=== PATIENT | female | born 1955 | race Caucasian/White ===

== ENCOUNTER → 2016-12-01 | Outpatient (CLI) | payer BC | LOC: MW.MRI 18:40 | PROVIDERS: ATTEND Orthopaedic Surgery | DX: M17.11 Unilateral primary osteoarthritis, right knee (principal) | CPT/HCPCS: 73721-RT ==

== ENCOUNTER 2016-12-26 08:00 | Inpatient (IN) | payer BC ==
[~2016-12-26 08:00] MED LIST: Acetaminophen 500 MG Tab PO SCH; Famotidine 20 MG/2 ML SDV IVPUSH SCH; Ketorolac 30 MG/ML SDV IVPUSH SCH; Ropivacaine 49.25 ML, Ketorolac 30 MG, EPINEPHrine 0.5 MG, cloNIDine 80 MCG in Sodium C... INFILT ONE; Scopolamine 1.5 MG Transdermal Patch TRDERM SCH; ceFAZolin 2 GM in Premix Bag 1 BAG IV SCH; oxyCODONE ER 20 MG TAB.ER PO SCH
[2016-12-26] MEDS: Lactated Ringers 1,000 ML IV SCH ×2 (08:56→23:48)
[2016-12-26] MEDS ORDERED: Furosemide 20 MG Tab PO PRN (09:00)
[2016-12-26] MEDS ORDERED: Midazolam 1 MG/ML 2 ML SDV ONE (09:05)
[2016-12-26] MEDS ORDERED: Lidocaine 2% 5 ML SDV ONE (09:05)
[2016-12-26] MEDS ORDERED: Propofol 200 MG/20 ML SDV ONE ×2 (09:05→09:24)
[2016-12-26] MEDS ORDERED: fentaNYL 100 MCG/2 ML SDV ONE ×2 (09:05→11:27)
[2016-12-26] MEDS ORDERED: ePHEDrine 50 MG/ML SDV ONE ×2 (09:06→11:23)
[2016-12-26] MEDS ORDERED: Ondansetron 4 MG/2 ML SDV ONE (09:06)
--- NOTE | 2016-12-26 09:43 | PCM.PREANE ---
Preanesthetic Assessment - Anesthesia/Transfusion/Family Hx Anesthesia History: Prior Anesthesia Without Reaction (LEFT CARPAL TUNNEL RELEASE 6 weeks ago) Other Type of Anesthesia Reaction Comment: Never in past but now "I do experience motion sickness on escalator" Family History of Anesthesia Reaction: No Transfusion History: No Prior Transfusion(s) Intubation History: Unknown (s/p cervical fusion) Additional History: CPAP for sleep apnea daily - Review of Systems General: Other (pain from both legs) Pulmonary: Other (sleep apnea; prior smoker) Gastrointestinal: Other (GERD and hiatal hernia (pantaprozole daily).) Neurological: Weakness (left arm with attempt to reach behind her) Other: Reports: Anxiety - Physical Assessment O2 Sat by Pulse Oximetry: 98 Respiratory Rate: 18 Vital Signs: Last Vital Signs Temp 97.8 F 12/26/16 08:54 Pulse 66 12/26/16 08:54 Resp 18 12/26/16 08:54 BP 143/94 H 12/26/16 08:54 Pulse Ox 98 12/26/16 08:54 Height: 5 ft 6 in Weight: 240 lb ASA Class: 3 Mental Status: Alert & Oriented x3 Airway Class: Mallampati = 2 Dentition: Reports: Dentures (upper), Partial (lower), Bridge Thyro-Mental Finger Breadths: 3 Mouth Opening Finger Breadths: 3 ROM/Head Extension: Limited/Partial (limited extension) Lungs: Clear to auscultation, Normal respiratory effort Cardiovascular: Regular Rate, Regular Rhythm - Allergies Allergies/Adverse Reactions: Allergies Allergy/AdvReac Type Severity Reaction Status Date / Time No Known Allergies Allergy Verified 07/04/16 13:19 - Blood Blood Available: Yes Product(s) Available: PRBC - Acknowledgements Anesthesia Type Planned: General Anesthesia (OET due to GERD hx), Spinal Pt an Appropriate Candidate for the Planned Anesthesia: Yes Alternatives and Risks of Anesthesia Discussed w Pt/Guardian: Yes Pt/Guardian Understands and Agrees with Anesthesia Plan: Yes PreAnesthesia Questionnaire HEENT History: Reports: Other (see below) Other HEENT History: wears glasses Cardiovascular History: Reports: High cholesterol, Hypertension Respiratory History: Reports: Sleep apnea, Other (see below) Other Respiratory History: Former smoker, QUIT 10 yrs ago, hx: 37 yrs of smoking heavily at one time up to 3 packs/day. Sleep apnea with machine, will bring day of procedure (portable) Gastrointestinal History: Reports: GERD, Hiatal hernia Other Gastrointestinal History: Heartburn/GERD Genitourinary History: Reports: None Musculoskeletal History: Reports: Arthritis, Fibromyalgia, Other (see below) Neurological History: Reports: None Psychiatric History: Reports: Depression Endocrine/Metabolic History: Reports: Obesity/BMI 30+ Hematologic History: Reports: None - Past Surgical History Head Surgeries/Procedures: Reports: None GI Surgical History: Reports: Appendectomy, Cholecystectomy Female Surgical History: Reports: Hysterectomy, Salpingo-oophorectomy Neurological Surgical History: Reports: Spinal fusion Other Neurological Surgeries/Procedures: Neck fusion 5--7 Musculoskeletal Surgical History: Reports: Arthroscopic knee, Shoulder surgery Other Musculoskeletal Surgeries/Procedures:: Left knee scope for torn meniscus, Neck surgery with FUSION --7, Right Achilles surgery, Left Shoulder surgery for spur removal, karlene carpal tunnel release - SUBSTANCE USE Smoking Status *Q: Former Smoker Tobacco Use Within Last Twelve Months: Cigarettes Other Tobacco Use Within Last Twelve Months: quit smoking 10 yrs ago Second Hand Smoke Exposure: No Recreational Drug Use History: No - HOME MEDS Home Medications: Home Meds Aspirin [Ecotrin] 1 tab PO DAILY 07/04/16 [History] Atenolol 1 tab PO BEDTIME 07/04/16 [History] Escitalopram Oxalate 1 tab PO BEDTIME 07/04/16 [History] Furosemide 1 tab PO DAILY PRN 07/04/16 [History] Lisinopril 1 tab PO BEDTIME 07/04/16 [History] Pantoprazole Sodium 1 tab PO BEDTIME 07/04/16 [History] Rosuvastatin [Crestor] 1 tab PO BEDTIME 07/04/16 [History] rOPINIRole HCl [Requip] 2 mg PO BEDTIME 11/04/16 [History] Acetaminophen/HYDROcodone [Hastings 325-5 MG] 1 - 2 tab PO Q4H PRN #80 tablet 11/09 [Rx] - CURRENT (IN HOUSE) MEDS Current Meds: Current Medications Acetaminophen (Tylenol Extra Strength) 1,000 mg PO ONARRIVE SHERIE Last Admin: 12/26/16 08:57 Dose: 1,000 mg Famotidine (Pepcid) 40 mg IVPUSH ONARRIVE SHERIE Last Admin: 12/26/16 08:56 Dose: 40 mg Lactated Ringer's (Ringers, Lactated) 1,000 mls @ 100 mls/hr IV ASDIRECTED [facility] Last Admin: 12/26/16 08:56 Dose: 100 mls/hr Cefazolin Sodium/Dextrose 2 gm (/ Premix) 50 mls @ 100 mls/hr IV ONCALL SHERIE Ketorolac Tromethamine (Toradol) 30 mg IVPUSH ONARRIVE [facility] Last Admin: 12/26/16 08:57 Dose: 30 mg Oxycodone HCl (Oxycontin) 20 mg PO ONARRIVE [facility] Last Admin: 12/26/16 08:58 Dose: 20 mg Scopolamine (Transderm-Scop) 1.5 mg TRDERM ONARRIVE [facility] Last Admin: 12/26/16 08:58 Dose: 1.5 mg Tranexamic Acid (Cyklokapron) 4,000 mg IV SEECOMMENT [facility] Discontinued Medications Ephedrine Sulfate (Ephedrine Sulfate) Confirm Administered Dose 50 mg .ROUTE .STK-MED ONE Stop: 12/26/16 09:07 Fentanyl (Sublimaze) Confirm Administered Dose 100 mcg .ROUTE .STK-MED ONE Stop: 12/26/16 09:06 Ropivacaine 49.25 ml/Ketorolac Tromethamine 30 mg/Epinephrine HCl 0.5 mg/ Clonidine HCl 80 mcg/ Sodium Chloride 100 mls @ 50 mls/min INFILT ONETIME ONE Stop: 12/26/16 06:01 Lidocaine (Xylocaine-Mpf 2%) Confirm Administered Dose 10 ml .ROUTE .STK-MED ONE Stop: 12/26/16 09:06 Midazolam HCl (Versed 1 Mg/Ml) Confirm Administered Dose 2 mg .ROUTE .STK-MED ONE Stop: 12/26/16 09:06 Ondansetron HCl (Zofran) Confirm Administered Dose 4 mg .ROUTE .STK-MED ONE Stop: 12/26/16 09:07 Propofol (Diprivan 20 Ml) Confirm Administered Dose 400 mg .ROUTE .STK-MED ONE Stop: 12/26/16 09:06 Propofol (Diprivan 20 Ml) Confirm Administered Dose 200 mg .ROUTE .STK-MED ONE Stop: 12/26/16 09:25 Preanesthetic Assessment - ANESTHESIA/TRANSFUSION/FAMILY HX Anesthesia/Transfusion History: Prior Anesthesia (cervical neck fusion 1 yr ago , no complications with any of her anesthetics in the past. ) Other Type of Anesthesia Reaction Comment: Never in past but now "I do experience motion sickness on escalator" Family History of Anesthesia Reaction: No Intubation History: Unknown - PHYSICAL ASSESSMENT O2 Sat by Pulse Oximetry: 98 RR: 18 Vital Signs: Last Vital Signs Temp 97.8 F 12/26/16 08:54 Pulse 66 12/26/16 08:54 Resp 18 12/26/16 08:54 BP 143/94 H 12/26/16 08:54 Pulse Ox 98 12/26/16 08:54 Height: 5 ft 6 in Weight: 240 lb - ALLERGIES Allergies/Adverse Reactions: Allergies Allergy/AdvReac Type Severity Reaction Status Date / Time No Known Allergies Allergy Verified 07/04/16 13:19
[2016-12-26] MEDS ORDERED: fentaNYL 100 MCG/2 ML SDV IVPUSH PRN (11:43)
[2016-12-26] MEDS ORDERED: HYDROmorphone 2 MG/ML Syringe IVPUSH ONE (11:43)
[2016-12-26] MEDS ORDERED: Ondansetron 4 MG/2 ML SDV IV PRN (12:14)
[2016-12-26] MEDS ORDERED: Aluminum Hydroxide/Magnesium Hydroxide/Simethicone Susp 30 ML Cup PO PRN (12:16)
[2016-12-26] MEDS ORDERED: Morphine 10 MG/ML Syringe IVPUSH PRN (12:16)
[2016-12-26] MEDS ORDERED: oxyCODONE 5 MG Tab PO PRN (12:16)
[2016-12-26] MEDS ORDERED: Bisacodyl 10 MG Supp RECTAL PRN (12:16)
--- NOTE | 2016-12-26 12:29 | PCM.OPNOTE ---
- General Post-Op/Procedure Note Date of Surgery/Procedure: 12/26/16 Operative Procedure(s): R TKA Post-Op Diagnosis: DJD R Knee Anesthesia Technique: General ET tube, Spinal Primary Surgeon: Renee Kelley Entry Writer: Ivy Alex Entry Writer: Omaira Hurley in mLs: 50 Condition: Good Free Text/Narrative:: tt=42 min #[id number]
--- NOTE | 2016-12-26 13:09 | OR ---
SURGEON: Renee Kelley MD DATE OF PROCEDURE: 12/26/2016 PREOPERATIVE DIAGNOSIS: Osteoarthritis, right knee, tricompartmental. POSTOPERATIVE DIAGNOSIS: Osteoarthritis, right knee, tricompartmental. PROCEDURE: Right total knee arthroplasty using patient specific instrumentation. ASSISTANTS: 1. Ivy Alex PA-C. 2. Omaira Hurley PA-C. ANESTHESIA: Spinal and general. ESTIMATED BLOOD LOSS: 50 mL. TOURNIQUET TIME: 42 minutes. COMPLICATIONS: None. DVT PROPHYLAXIS: PAS boot and ZEINAB hose to the nonoperative leg. IMPLANTS USED: Mica Persona femoral component size 8 (LPS), tibial component size F, 10 mm all-polyethylene articular surface, and 35 mm all-polyethylene patella. FINDINGS: Showed grade 4 chondromalacia throughout all 3 compartments. No significant synovitis was noted. Osteophyte formation was also noted. 1 g of tranexamic acid was given IV at the start of the case. An additional gram was given IV following deflation of the tourniquet. 1 g was administered topically as the cement was allowed to harden. BRIEF HISTORY: Elena is a 61-year-old female, who has had complaint of progressive right knee pain. She had previously undergone a right knee arthroscopy, which did show evidence of grade 3 to grade 4 chondromalacia. Due to her lack of response to conservative treatment, I did recommend surgical intervention. The risks and goals of the procedure were discussed with the patient and were documented preoperatively. She agreed to proceed. DESCRIPTION OF PROCEDURE: The patient was properly identified and brought to the operating room. The patient was then transferred from the operating room cart and placed on the operating table in a supine position. Anesthesia was administered by the anesthesia staff. After adequate anesthesia was obtained, a well-padded tourniquet was applied to the surgical lower extremity. The lower extremity was then prepped in standard fashion using ChloraPrep solution. It was then sterilely draped. A time-out was performed to ensure correct site and procedure. Preoperative antibiotics were given. The surgical site had been marked preoperatively. An Esmarch was used to exsanguinate the right lower extremity and the tourniquet was inflated. An incision was made over the anterior aspect of the knee. The subcutaneous tissues were dissected down to the level of the fascia. A medial parapatellar approach to the knee was made. A portion of the infrapatellar fat pad was then excised. The distal femur was then exposed. The femoral patient-specific cutting guide was then placed. Pins were also placed. The distal femoral cutting block was placed and the distal femoral cut was made. Instrumentation was then removed. Both Whitesides' line and the epicondylar axis were then marked with electrocautery. The 4-in-1 cutting block was placed. This was placed in a slightly externally rotated position, which corresponded well with the previously drawn lines. The cutting guide was then pinned into position. An Jim wing guide was used to check the depth of resection of our anterior condylar cut and it was felt that no notching would occur. The anterior condylar cut was then made followed by the posterior condylar cut. Both the posterior chamfer and anterior chamfer cuts were then made. The cutting block was then removed along with the excess bony remnants. We then turned our attention to the tibia. The anterior cruciate ligament and posterior cruciate ligament were released and a posterior cruciate ligament retractor was placed to allow the tibia to be pulled anteriorly. The tibial patient-specific guide was then placed on the proximal tibia. This fit anatomically. The pins were then placed. The proximal tibia cutting guide was then placed and screwed into position. The proximal tibial resection was then made with care being taken to protect the patellar tendon. The bony resection was then removed. The remainder of the medial and lateral meniscus were then excised. Care was taken to protect the popliteus tendon. The tibia was then sized to the appropriate size. The distal femur was then elevated. The posterior capsule was stripped off the distal femur both medially and laterally. The posterior capsule along with the medial and lateral gutters were then injected with a standard mixture consisting of clonidine, epinephrine, Morphine, Toradol, and Ropivacaine, unless any allergies were found preoperatively. The femoral component was then placed onto the distal femur in a slightly lateral position. This fit the femur well. A box cut was then made without difficulty. This was then removed. The tibial trial along with the polyethylene liner was then placed. The knee came easily into full extension and was stable to varus and valgus stressing both in full extension and flexion. Any additional releases were performed at this time. We then returned our attention to the patella. The patella was everted and towel clamps were used to hold the patella in position. It was resected to a 15 millimeter thickness. It was then sized to the appropriate size. It was prepared in the usual fashion after placing the predetermined size clamps. This was placed in a slightly superior and medial position. The clamp was then removed. The patellar trial button was placed. The knee was taken through a range of motion using the no-touch technique. The patella tracked centrally. A drop drew was then placed to check alignment. All instruments were then removed from the knee. The tibial sizer was then placed on the tibia. The tibia was prepared in the usual fashion using the reamer and broach. This was then removed. All bony surfaces were copiously irrigated with Pulsavac solution. They were then suctioned dry. Cement was prepared on the back table in the usual manner. Once it was prepared, the bone ends were again suctioned dry. The tibia was cemented into place first. This was malleted into position. Excess cement was then cleared. The femur was then placed in a similar manner. We placed the polyethylene trial into place and the knee was brought into full extension. An axial load was placed while keeping the knee in full extension. The patella button was also cemented into position and the clamp was used to hold this in place as the cement was allowed to cure. After we had adequate curing of the cement, the knee was again taken through a range of motion. The size of the polyethylene was then determined. The polyethylene trial was then removed. The tibial tray was suctioned to make sure there was no remaining soft tissue or cement. Excess cement was cleared from around the edges of the prosthesis as well. The tourniquet was then deflated. We were able to observe for any excess bleeding and none was noted. Electrocautery was used to maintain hemostasis. The retractors were again placed and the predetermined polyethylene was then placed. This was locked into position without difficulty. The knee was again taken through a range of motion with no change from the prior exam. The wound was then copiously irrigated with Pulsavac solution. The fascial layer was closed with Number One Vicryl. The subcutaneous tissues were closed with 2-0 Vicryl. The skin was closed with jj. Xeroform gauze was placed over the wound and a bulky dressing was applied. The patient was then awakened from anesthesia and transferred back to the operating room cart. They were brought to the recovery room in stable condition. All needle and sponge counts were correct. MIRA / CASANDRA /[id number]
--- NOTE | 2016-12-26 13:58 | PCM.POSTAN ---
POST ANESTHESIA ASSESSMENT - MENTAL STATUS Mental Status: alert, oriented - RESPIRATORY Respiratory Status: respiratory rate WNL, airway patent, O2 saturation stable - CARDIOVASCULAR CV Status: pulse rate WNL, blood pressure stable - GASTROINTESTINAL GI Status: no symptoms - PAIN Pain Score: 0 - POST OP HYDRATION Hydration Status: adequate & stable
--- NOTE | 2016-12-26 14:45 | CR ---
EXAMINATION: Right knee HISTORY: TKA COMPARISON: 12/01/2016 TECHNIQUE: 2 views FINDINGS/IMPRESSION: Right total knee hardware is demonstrated in good position and alignment. Opera tive soft tissue changes noted.
[2016-12-26] MEDS: Acetaminophen 500 MG Tab PO SCH ×2 (14:50→20:22)
[2016-12-26] MEDS: diphenhydrAMINE 25 MG Cap PO PRN (14:55)
[2016-12-26] MEDS: Ketorolac 30 MG/ML SDV IVPUSH SCH ×2 (17:07→23:44)
[2016-12-26] MEDS: ceFAZolin 2 GM in Premix Bag 1 BAG IV SCH (18:10)
[2016-12-26] MEDS: Docusate Sodium 100 MG Cap PO SCH (20:23)
[2016-12-26] MEDS: oxyCODONE ER 20 MG TAB.ER PO SCH (20:23)
[2016-12-26] MEDS ORDERED: Lisinopril 10 MG Tab PO SCH (21:00)
[2016-12-26] MEDS ORDERED: Rosuvastatin 10 MG Tab PO SCH (21:00)
[2016-12-26] MEDS ORDERED: Atenolol 25 MG Tab PO SCH (21:00)
[2016-12-26] MEDS ORDERED: Escitalopram 10 MG Tab PO SCH (21:00)
[2016-12-26] MEDS ORDERED: Pantoprazole 40 MG Tab.CR PO SCH (21:00)
[2016-12-26] MEDS ORDERED: rOPINIRole 1 MG Tab PO SCH (21:00)
[2016-12-27] MEDS: ceFAZolin 2 GM in Premix Bag 1 BAG IV SCH (03:44)
[2016-12-27] MEDS: Acetaminophen 500 MG Tab PO SCH ×3 (03:47→14:47)
[2016-12-27] MEDS: Ketorolac 30 MG/ML SDV IVPUSH SCH (06:07)
[2016-12-27] MEDS: oxyCODONE ER 20 MG TAB.ER PO SCH (08:03)
[2016-12-27] MEDS: Docusate Sodium 100 MG Cap PO SCH (08:03)
[2016-12-27] MEDS ORDERED: Sodium Chloride 0.9% 10 ML Syringe FLUSH PRN (08:09)
[2016-12-27] MEDS ORDERED: Sodium Chloride 0.9% 2.5 ML Syringe FLUSH PRN (08:09)
--- NOTE | 2016-12-27 08:11 | PCM.SURGPN ---
- General Info Date of Service: 12/27/16 Date of Surgery/Procedure: 12/26/16 POD#: 1 Functional Status: Reports: pain controlled - Review of Systems General: Reports: No Symptoms Gastrointestinal: Denies: Nausea, Vomiting Musculoskeletal: Reports: leg pain Systems Review Comment:: pt up to chair for breakfast tolerating PO intake well, no nausea pain controlled with PO pain medications some serosang drainage from dressing, has been appropriately reinforced no concerns from patient today - Patient Data Vitals - most recent: Last Vital Signs Temp 97.6 F 12/27/16 04:00 Pulse 72 12/27/16 04:00 Resp 19 12/27/16 04:00 BP 97/60 12/27/16 04:00 Pulse Ox 91 L 12/27/16 04:00 Weight - most recent: 105.862 kg I&O - last 24 hours: Intake & Output 12/26/16 12/27/16 12/27/16 22:59 06:59 14:59 Intake Total 250 1500 Output Total 150 1000 Balance 100 500 Lab Results last 24 hrs: Laboratory Results - last 24 hr 12/26/16 12/27/16 Range/Units 08:56 04:09 Hgb 12.7 (12.0-16.0) g/dL Hct 40.3 (36.0-46.0) % Blood Type O POSITIVE Antibody Screen NEGATIVE Med Orders - Current: Current Medications Acetaminophen (Tylenol Extra Strength) 1,000 mg PO Q6H [facility] Last Admin: 12/27/16 08:03 Dose: 1,000 mg Al Hydroxide/Mg Hydroxide (Mag-Al Plus) 30 ml PO Q4H PRN PRN Reason: indigestion Aspirin (Aspirin) 325 mg PO BID [facility] Last Admin: 12/27/16 08:02 Dose: 325 mg Atenolol (Tenormin) 25 mg PO BEDTIME [facility] Last Admin: 12/26/16 22:59 Dose: Not Given Bisacodyl (Dulcolax) 10 mg RECTAL DAILY PRN PRN Reason: Constipation Celecoxib (Celebrex) 200 mg PO BID [facility] Last Admin: 12/27/16 08:02 Dose: 200 mg Diphenhydramine HCl (Benadryl) 25 - 50 mg PO Q6H PRN PRN Reason: Itching Last Admin: 12/26/16 14:55 Dose: 25 mg Docusate Sodium (Colace) 100 mg PO BID [facility] Last Admin: 12/27/16 08:03 Dose: 100 mg Escitalopram Oxalate (Lexapro) 20 mg PO BEDTIME [facility] Last Admin: 12/26/16 20:23 Dose: 20 mg Furosemide (Lasix) 20 mg PO DAILY PRN PRN Reason: Edema Lactated Ringer's (Ringers, Lactated) 1,000 mls @ 100 mls/hr IV ASDIRECTED [facility] Last Admin: 12/26/16 23:48 Dose: 100 mls/hr Ketorolac Tromethamine (Toradol) 30 mg IVPUSH Q6H [facility] Stop: 12/27/16 09:00 Last Admin: 12/27/16 06:07 Dose: 30 mg Lisinopril (Prinivil) 20 mg PO BEDTIME [facility] Last Admin: 12/26/16 22:59 Dose: Not Given Morphine Sulfate (Morphine) 1 - 3 mg IVPUSH Q3H PRN PRN Reason: Pain Ondansetron HCl (Zofran) 4 mg IV Q6HR PRN PRN Reason: NAUSEA/VOMITING Oxycodone HCl (Oxycodone) 5 - 10 mg PO Q4H PRN PRN Reason: Pain Last Admin: 12/26/16 15:22 Dose: 5 mg Oxycodone HCl (Oxycontin) 20 mg PO Q12HR [facility] Last Admin: 12/27/16 08:03 Dose: 20 mg Pantoprazole Sodium (Protonix) 40 mg PO BEDTIME [facility] Last Admin: 12/26/16 20:23 Dose: 40 mg Ropinirole HCl (Requip) 2 mg PO BEDTIME [facility] Last Admin: 12/26/16 20:23 Dose: 2 mg Rosuvastatin Calcium (Crestor) 40 mg PO BEDTIME [facility] Last Admin: 12/26/16 20:23 Dose: 40 mg Scopolamine (Transderm-Scop) 1.5 mg TRDERM ONARRIVE [facility] Last Admin: 12/26/16 08:58 Dose: 1.5 mg Discontinued Medications Acetaminophen (Tylenol Extra Strength) 1,000 mg PO ONARRIVE [facility] Last Admin: 12/26/16 08:57 Dose: 1,000 mg Ephedrine Sulfate (Ephedrine Sulfate) Confirm Administered Dose 50 mg .ROUTE .[facility]-MED ONE Stop: 12/26/16 09:07 Ephedrine Sulfate (Ephedrine Sulfate) Confirm Administered Dose 50 mg .ROUTE .STK-MED ONE Stop: 12/26/16 11:24 Famotidine (Pepcid) 40 mg IVPUSH ONARRIVE [facility] Last Admin: 12/26/16 08:56 Dose: 40 mg Fentanyl (Sublimaze) Confirm Administered Dose 100 mcg .ROUTE .STK-MED ONE Stop: 12/26/16 09:06 Fentanyl (Sublimaze) Confirm Administered Dose 100 mcg .ROUTE .STK-MED ONE Stop: 12/26/16 11:28 Fentanyl (Sublimaze) 50 mcg IVPUSH Q5M PRN PRN Reason: Pain (severe 7-10) Stop: 12/26/16 15:00 Hydromorphone HCl (Dilaudid) 0 mg IVPUSH ONETIME ONE Stop: 12/26/16 11:44 Last Admin: 12/26/16 14:22 Dose: Not Given Ropivacaine 49.25 ml/Ketorolac Tromethamine 30 mg/Epinephrine HCl 0.5 mg/ Clonidine HCl 80 mcg/ Sodium Chloride 100 mls @ 50 mls/min INFILT ONETIME ONE Stop: 12/26/16 06:01 Last Admin: 12/26/16 17:39 Dose: Not Given Cefazolin Sodium/Dextrose 2 gm (/ Premix) 50 mls @ 100 mls/hr IV ONCALL [facility] Cefazolin Sodium/Dextrose 2 gm (/ Premix) 50 mls @ 100 mls/hr IV Q8H [facility] Stop: 12/27/16 03:29 Last Admin: 12/27/16 03:44 Dose: 100 mls/hr Ketorolac Tromethamine (Toradol) 30 mg IVPUSH ONARRIVE [facility] Last Admin: 12/26/16 08:57 Dose: 30 mg Lidocaine (Xylocaine-Mpf 2%) Confirm Administered Dose 10 ml .ROUTE .STK-MED ONE Stop: 12/26/16 09:06 Midazolam HCl (Versed 1 Mg/Ml) Confirm Administered Dose 2 mg .ROUTE .STK-MED ONE Stop: 12/26/16 09:06 Ondansetron HCl (Zofran) Confirm Administered Dose 4 mg .ROUTE .STK-MED ONE Stop: 12/26/16 09:07 Oxycodone HCl (Oxycontin) 20 mg PO ONARRIVE [facility] Last Admin: 12/26/16 08:58 Dose: 20 mg Propofol (Diprivan 20 Ml) Confirm Administered Dose 400 mg .ROUTE .STK-MED ONE Stop: 12/26/16 09:06 Propofol (Diprivan 20 Ml) Confirm Administered Dose 200 mg .ROUTE .STK-MED ONE Stop: 12/26/16 09:25 Tranexamic Acid (Cyklokapron) 4,000 mg IV SEECOMMENT [facility] Tranexamic Acid (Cyklokapron) Confirm Administered Dose 4,000 mg .ROUTE .STK- MED ONE Stop: 12/26/16 10:41 Tranexamic Acid (Cyklokapron) Confirm Administered Dose 1,000 mg .ROUTE .STK- MED ONE Stop: 12/26/16 13:54 - Exam Wound/Incisions: other (dressing with serosang drainage both distally and proximally, reinforced) General: alert, oriented Extremities: no edema, normal pulses, no calf tenderness, other (RLE - at/ehl/ gastroc 5/5, dp 2+, sensation intact distally) Physical Findings Comment:: vss, afeb (recent bps 90s/40s) hgb 12.7 uo 1800mL - Problem List Review Problem List Initiated/Reviewed/Updated: Yes - My Orders Last 24 Hours: Active Orders 24 hr Category Date Time Status Patient Status [ADT] Routine ADT 12/26/16 12:25 Active Transfer Patient (Change bed) [ADT] Routine ADT 12/26/16 12:25 Ordered Activity as Tolerated [RC] .Routine Care 12/26/16 12:14 Active Dressing Change [Wound Care] [RC] DAILY Care 12/26/16 12:14 Active Intake and Output [RC] Q12H Care 12/26/16 12:14 Active Neurovascular Check [RC] Q2HR Care 12/26/16 12:14 Active Notify Provider Vital Signs [RC] ASDIRECTED Care 12/26/16 12:14 Active RT Incentive Spirometry [RC] ASDIRECTED Care 12/26/16 12:14 Active Vital Signs [RC] Q4H Care 12/26/16 12:14 Active PT Evaluation and Treatment [CONS] Routine Cons 12/26/16 12:14 Active HEMOGLOBIN/HEMATOCRIT,HH [HEME] DAILY Lab 12/28/16 06:00 Ordered HEMOGLOBIN/HEMATOCRIT,HH [HEME] DAILY Lab 12/29/16 06:00 Ordered Acetaminophen [Tylenol Extra Strength] Med 12/26/16 15:00 Active 1,000 mg PO Q6H Alum Hydrox/Mag Hydrox/Simeth [Mag-Al Plus] Med 12/26/16 12:16 Active 30 ml PO Q4H PRN Aspirin Med 12/27/16 09:00 Active 325 mg PO BID Atenolol [Tenormin] Med 12/26/16 21:00 Active 25 mg PO BEDTIME Bisacodyl [Dulcolax] Med 12/26/16 12:16 Active 10 mg RECTAL DAILY PRN Celecoxib [CeleBREX] Med 12/27/16 09:00 Active 200 mg PO BID Docusate Sodium [Colace] Med 12/26/16 21:00 Active 100 mg PO BID Escitalopram [Lexapro] Med 12/26/16 21:00 Active 20 mg PO BEDTIME Furosemide [Lasix] Med 12/26/16 09:00 Active 20 mg PO DAILY PRN Ketorolac [Toradol] Med 12/26/16 18:00 Active 30 mg IVPUSH Q6H Lisinopril [Prinivil] Med 12/26/16 21:00 Active 20 mg PO BEDTIME Morphine Med 12/26/16 12:16 Active 1 - 3 mg IVPUSH Q3H PRN Ondansetron [Zofran] Med 12/26/16 12:14 Active 4 mg IV Q6HR PRN Pantoprazole [Protonix] Med 12/26/16 21:00 Active 40 mg PO BEDTIME Rosuvastatin [Crestor] Med 12/26/16 21:00 Active 40 mg PO BEDTIME diphenhydrAMINE [Benadryl] Med 12/26/16 12:15 Active 25 - 50 mg PO Q6H PRN oxyCODONE Med 12/26/16 12:16 Active 5 - 10 mg PO Q4H PRN oxyCODONE ER [OxyCONTIN] Med 12/26/16 21:00 Active 20 mg PO Q12HR rOPINIRole [Requip] Med 12/26/16 21:00 Active 2 mg PO BEDTIME Ice Therapy [OM.PC] Routine Oth 12/26/16 12:14 Ordered Medication Orders Acetaminophen (Tylenol Extra Strength) 1,000 mg PO Q6H [facility] Last Admin: 12/27/16 08:03 Dose: 1,000 mg Admin: 12/27/16 03:47 Dose: 1,000 mg Admin: 12/26/16 20:22 Dose: 1,000 mg Admin: 12/26/16 14:50 Dose: 1,000 mg Al Hydroxide/Mg Hydroxide (Mag-Al Plus) 30 ml PO Q4H PRN PRN Reason: indigestion Aspirin (Aspirin) 325 mg PO BID [facility] Last Admin: 12/27/16 08:02 Dose: 325 mg Atenolol (Tenormin) 25 mg PO BEDTIME [facility] Last Admin: 12/26/16 22:59 Dose: Bisacodyl (Dulcolax) 10 mg RECTAL DAILY PRN PRN Reason: Constipation Celecoxib (Celebrex) 200 mg PO BID [facility] Last Admin: 12/27/16 08:02 Dose: 200 mg Diphenhydramine HCl (Benadryl) 25 - 50 mg PO Q6H PRN PRN Reason: Itching Last Admin: 12/26/16 14:55 Dose: 25 mg Docusate Sodium (Colace) 100 mg PO BID [facility] Last Admin: 12/27/16 08:03 Dose: 100 mg Admin: 12/26/16 20:23 Dose: 100 mg Escitalopram Oxalate (Lexapro) 20 mg PO BEDTIME [facility] Last Admin: 12/26/16 20:23 Dose: 20 mg Furosemide (Lasix) 20 mg PO DAILY PRN PRN Reason: Edema Lactated Ringer's (Ringers, Lactated) 1,000 mls @ 100 mls/hr IV ASDIRECTED [facility] Last Admin: 12/26/16 23:48 Dose: 100 mls/hr Infusion: 12/26/16 18:56 Dose: 100 mls/hr Admin: 12/26/16 08:56 Dose: 100 mls/hr Ketorolac Tromethamine (Toradol) 30 mg IVPUSH Q6H [facility] Stop: 12/27/16 09:00 Last Admin: 12/27/16 06:07 Dose: 30 mg Admin: 12/26/16 23:44 Dose: 30 mg Admin: 12/26/16 17:07 Dose: 30 mg Lisinopril (Prinivil) 20 mg PO BEDTIME [facility] Last Admin: 12/26/16 22:59 Dose: Morphine Sulfate (Morphine) 1 - 3 mg IVPUSH Q3H PRN PRN Reason: Pain Ondansetron HCl (Zofran) 4 mg IV Q6HR PRN PRN Reason: NAUSEA/VOMITING Oxycodone HCl (Oxycodone) 5 - 10 mg PO Q4H PRN PRN Reason: Pain Last Admin: 12/26/16 15:22 Dose: 5 mg Oxycodone HCl (Oxycontin) 20 mg PO Q12HR [facility] Last Admin: 12/27/16 08:03 Dose: 20 mg Admin: 12/26/16 20:23 Dose: 20 mg Pantoprazole Sodium (Protonix) 40 mg PO BEDTIME [facility] Last Admin: 12/26/16 20:23 Dose: 40 mg Ropinirole HCl (Requip) 2 mg PO BEDTIME [facility] Last Admin: 12/26/16 20:23 Dose: 2 mg Rosuvastatin Calcium (Crestor) 40 mg PO BEDTIME [facility] Last Admin: 12/26/16 20:23 Dose: 40 mg Scopolamine (Transderm-Scop) 1.5 mg TRDERM ONARRIVE [facility] Last Admin: 12/26/16 08:58 Dose: 1.5 mg - Assessment Assessment (Free Text/Narrative):: POD#1 R TKA - Plan Plan (Free Text/Narrative):: DC IV fluids DC chew hold anti-hypertensives this morning, will resume becomes hypertensive PT today ASA 325mg PO BID for DVT prophylaxis if pt does well with PT, and pain is controlled with PO pain meds, may consider DC to home this afternoon
[2016-12-27] MEDS: diphenhydrAMINE 25 MG Cap PO PRN (08:47)
[2016-12-27] MEDS ORDERED: Celecoxib 100 MG Cap PO SCH (09:00)
[2016-12-27] MEDS ORDERED: Aspirin 325 MG Tab PO SCH (09:00)
--- NOTE | 2016-12-27 10:43 | PCM48HPAN ---
Post Anesthesia Note - EVALUATION WITHIN 48HRS OF ANESTHETIC Vital Signs in Normal Range: Yes Patient Participated in Evaluation: Yes Respiratory Function Stable: Yes Airway Patent: Yes Cardiovascular Function Stable: Yes Hydration Status Stable: Yes Pain Control Satisfactory: Yes Nausea and Vomiting Control Satisfactory: Yes Mental Status Recovered: Yes - COMMENTS/OBSERVATIONS Free Text/Narrative:: Able to get out of bed and anticipating how she would get in and out of the transport vehicles available i.e. pickup.
[2016-12-27 12:45] VITALS: BP 106/53
--- NOTE | 2016-12-27 12:46 | PCM.SN ---
- Free Text/Narrative Note: Patient seen and examined. Agree with Isai PAC note. Patient has been out of bed with physical therapy. She has done ambulation as well as stair climbing. Her pain has been well-controlled. Exam of the right knee shows incision site to be clean. She does have a small area of sanguinous drainage from the distal portion of the incision. New gauze was placed today along with a Spandage dressing. She is to change the dressing as needed over the next one to 2 days. After that, once the draining results, she is to place an Aquasol dressing which will be sent home with her. If her drainage persist, she is advised to contact us. Will plan on seeing her back in 2 weeks for reevaluation. She is to continue taking ASA 325 mg po bid for DVT prophylaxis. She is advised to contact us if she has questions or concerns before that time. She agrees with the plan.
--- NOTE | 2016-12-27 15:40 | PCM.SN ---
- Free Text/Narrative Note: d/ch summary #[id number] pt's gauze has been changed - previous gauze dressing saturated with sanguinous drainge. pt will continue gauze dressing changes as needed. she has been advised to contact the clinic 12/29 AM to update on wound. if drainage has improved, would recommend Aquacel dressing placement. if drainage has not improved, will see her back in clinic or monday (12/29 or 12/30).
--- NOTE | 2017-01-02 07:50 | DISCH ---
DATE OF DISCHARGE: 12/27/2016 PRIMARY CARE PHYSICIAN: Lissett Ervin NP ADMITTING DIAGNOSIS: Degenerative joint disease, right knee, tricompartmental. OTHER MEDICAL DIAGNOSES: 1. Hypertension. 2. Dyslipidemia. 3. Obstructive sleep apnea, on CPAP. 4. Depression. 5. Gastroesophageal reflux disease. 6. Irregular heartbeat. 7. Fluid retention. 8. Fibromyalgia. 9. Obesity. DISCHARGE DIAGNOSES: 1. Degenerative joint disease, right knee, tricompartmental. 2. Hypertension. 3. Dyslipidemia. 4. Obstructive sleep apnea, on CPAP. 5. Depression. 6. Gastroesophageal reflux disease. 7. Irregular heartbeat. 8. Fluid retention. 9. Fibromyalgia. 10.Obesity. BRIEF HISTORY: Elena is a 61-year-old female, who has had complaints of progressive right knee pain. She has tried and failed conservative treatment. At that time, surgical treatment was recommended. On December 26, 2016, the patient underwent a right total knee arthroplasty using patient-specific instrumentation done by Dr. Renee Kelley. This was done under spinal anesthesia with general endotracheal anesthesia. Estimated blood loss was 50 mL. Tourniquet time was 42 minutes. Upon completion of the procedure, the patient was transferred to the PACU and subsequently to Med/Surg for postoperative care. HOSPITAL COURSE: Postoperatively, the patient did well. She received 2 doses of Ancef postoperatively for total 24 hours of antibiotic coverage. Her pain is controlled with oral pain medications. Physical Therapy followed her through her hospital stay. Aspirin 325 mg by mouth twice daily was started on postoperative day #1 as DVT prophylaxis. Her vital signs have been stable. She has been afebrile. Her hemoglobin on the morning of December 27 was 12.7. At this time, the patient feels comfortable with discharge to home. Her pain is well controlled with oral pain medications. She is ambulating well with a wheeled walker. She is tolerating oral intake. DISCHARGE MEDICATIONS: 1. OxyContin 20 mg. 2. Oxycodone 5 mg. 3. Tylenol Extra Strength 500 mg. 4. Celebrex 200 mg. 5. Colace 100 mg. 6. Aspirin 325 mg. DISCHARGE INSTRUCTIONS: 1. Follow up in clinic in 10 to 14 days from the date of surgery. This appointment has been made for the patient. 2. She will continue to monitor for serosanguineous drainage from her wound. She has been advised to call the clinic on December 29, 2016, to update us on her drainage. If her drainage has slowed, we would recommend placement of an Aquacel dressing. If it does not improve, we will bring her back to clinic for re-evaluation. 3. She may not drive for minimum of 4-6 weeks status post right total knee arthroplasty. 4. She will need a wheeled walker for ambulation assistance and stability until she has improved right lower extremity strength and stability. 5. She is to wear her ZEINAB hose, on in the morning, off in the evening. 6. Polar Care to the right knee as needed. For complete medication reconciliation and discharge instructions, please refer back to the patient's EHR. Should she have questions or concerns prior to followup, she has been advised to return to clinic or call. SENAIT GUAJARDO /[phone]
== END 2016-12-27 14:00 | disposition home or self-care (01) | DRG 302 ==
LOC: MW.MS 08:38
PROVIDERS: ADMIT Orthopaedic Surgery; ATTEND Orthopaedic Surgery
PROC: 0SRC0J9 Replacement of Right Knee Joint with Synthetic Substitute, Cemented, Open Approach (ICD-10-PCS; principal; 2016-12-26)
DX: M17.11 Unilateral primary osteoarthritis, right knee (principal); M94.261 Chondromalacia, right knee; M25.761 Osteophyte, right knee; I10 Essential (primary) hypertension; E78.5 Hyperlipidemia, unspecified; G47.33 Obstructive sleep apnea (adult) (pediatric); K21.9 Gastro-esophageal reflux disease without esophagitis; F32.9 Major depressive disorder, single episode, unspecified; Z87.891 Personal history of nicotine dependence; I49.9 Cardiac arrhythmia, unspecified; Z79.899 Other long term (current) drug therapy
CPT/HCPCS: 01402; 36415; 73560-26-RT; 73560-RT; 85014; 85018; 86850; 86900; 86901; 88305; 88311; 97110-GP; 97161-GP; 97530-GP; A9270-GY; C1713; C1776; J0171; J0690; J0735; J1885; J2250; J2270; J2405; J2704; J2795; J3010; J7050; J7120

== ENCOUNTER 2017-09-26 13:01 | Inpatient (IN) | payer BC ==
[~2017-09-26 13:01] MED LIST changes: +Acetaminophen 1,000 MG in Premix Bag 1 BAG IV SCH; -Acetaminophen 500 MG Tab PO SCH; +Lactated Ringers 1,000 ML IV SCH; +Lidocaine 2% 5 ML SDV ONE; +Midazolam 1 MG/ML 2 ML SDV ONE; +Ondansetron 4 MG/2 ML SDV ONE; +Propofol 200 MG/20 ML SDV ONE; -Ropivacaine 49.25 ML, Ketorolac 30 MG, EPINEPHrine 0.5 MG, cloNIDine 80 MCG in Sodium C... INFILT ONE; +Ropivacaine 49.25 ML, Ketorolac 30 MG, EPINEPHrine 0.5 MG, cloNIDine 80 MCG in Sodium C... INJECT SCH; +Tranexamic Acid 4,000 MG in Sodium Chloride 0.9% 100 ML IV SCH; +ePHEDrine 50 MG/ML SDV ONE; +fentaNYL 100 MCG/2 ML SDV ONE
[2017-09-26] MEDS ORDERED: fentaNYL 100 MCG/2 ML SDV IVPUSH PRN (14:06)
[2017-09-26] MEDS ORDERED: HYDROmorphone 2 MG/ML Syringe IVPUSH ONE (14:06)
[2017-09-26] MEDS ORDERED: Propofol 200 MG/20 ML SDV ONE (14:07)
[2017-09-26] MEDS ORDERED: Bisacodyl 10 MG Supp RECTAL PRN (14:34)
[2017-09-26] MEDS ORDERED: Ondansetron 4 MG/2 ML SDV IV PRN (14:34)
[2017-09-26] MEDS ORDERED: oxyCODONE 5 MG Tab PO PRN (14:34)
[2017-09-26] MEDS ORDERED: diphenhydrAMINE 25 MG Cap PO PRN (14:34)
[2017-09-26] MEDS ORDERED: Aluminum Hydroxide/Magnesium Hydroxide/Simethicone Susp 30 ML Cup PO PRN (14:34)
[2017-09-26] MEDS ORDERED: HYDROmorphone 2 MG/ML Syringe IVPUSH PRN (14:34)
[2017-09-26] MEDS ORDERED: Furosemide 20 MG Tab PO PRN (14:37)
--- NOTE | 2017-09-26 17:39 | PCM.OPNOTE ---
- General Post-Op/Procedure Note Date of Surgery/Procedure: 09/26/17 Operative Procedure(s): L TKA Post-Op Diagnosis: DJD left knee Anesthesia Technique: Moderate Sedation, Spinal Primary Surgeon: Renee Kelley Liquid Compounder: Ivy Alex Liquid Compounder: Omaira Hurley in mLs: 50 Condition: Good Free Text/Narrative:: tt=40 min #[id number]
--- NOTE | 2017-09-26 17:40 | PCM.POSTAN ---
POST ANESTHESIA ASSESSMENT - MENTAL STATUS Mental Status: Alert - RESPIRATORY Respiratory Status: Respiratory Rate WNL - CARDIOVASCULAR CV Status: Pulse Rate WNL - GASTROINTESTINAL GI Status: No Symptoms - PAIN Pain Score: 0 - POST OP HYDRATION Hydration Status: Adequate & Stable
[2017-09-26] MEDS: Acetaminophen 1,000 MG in Premix Bag 1 BAG IV SCH (18:00)
[2017-09-26] MEDS: Ketorolac 30 MG/ML SDV IVPUSH SCH (18:31)
--- NOTE | 2017-09-26 18:52 | OR ---
SURGEON: Renee Kelley MD DATE OF PROCEDURE: 09/26/2017 PREOPERATIVE DIAGNOSIS: Degenerative joint disease, left knee, tricompartmental. POSTOPERATIVE DIAGNOSIS: Degenerative joint disease, left knee, tricompartmental. PROCEDURE: Left total knee arthroplasty. BORE MINER OPERATOR: Ivy Alex PA-C and Omaira Hurley PA-C. ANESTHESIA: Spinal with sedation. ESTIMATED BLOOD LOSS: 50 mL. TOURNIQUET TIME: 40 minutes. COMPLICATIONS: None. DVT PROPHYLAXIS: PAS boot and ZEINBA hose to the nonoperative leg. IMPLANTS USED: Mica Persona femoral component size 10 narrow (LPS), tibial component size F, 10 mm all-polyethylene articular surface, and 35 mm all-polyethylene patella. 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 Osteophyte formation was also noted. No significant synovitis was found. BRIEF HISTORY: Elena is a 61-year-old female, who has had complaint of progressive left knee pain. She had failed conservative treatment. She does have a history of a previous right total knee arthroplasty and has done well. Due to her lack of response to conservative treatment, I did recommend surgical intervention. The risks and goals of procedure were discussed with the patient and were documented preoperatively. She agreed to proceed. DESCRIPTION OF PROCEDURE: The patient was properly identified and brought to the operating room. The patient was then transferred from the operating room cart and placed on the operating table in a supine position. Anesthesia was administered by the anesthesia staff. After adequate anesthesia was obtained, a well-padded tourniquet was applied to the surgical lower extremity. Taylor catheter was placed. The lower extremity was then prepped in standard fashion using ChloraPrep solution. It was then sterilely draped. A time-out was performed to ensure correct site and procedure. Preoperative antibiotics were given along with one gram tranexamic acid IV. The surgical site had been marked preoperatively. An Esmarch was used to exsanguinate the right lower extremity and the tourniquet was inflated. An incision was made over the anterior aspect of the knee. The subcutaneous tissues were dissected down to the level of the fascia. A medial parapatellar approach to the knee was made. A portion of the infrapatellar fat pad was then excised. The distal femur was then exposed. The step reamer was used to gain access to the intramedullary canal. This was placed in 6 degrees of valgus. Pins were placed. The distal femoral cutting block was placed and the distal femoral cut was made. Instrumentation was then removed. The femur was then sized. Both Whitesides' line and the epicondylar axis were then marked with electrocautery. The 4-in-1 cutting block was placed. This was placed in a slightly externally rotated position, which corresponded well with the previously drawn lines. The cutting guide was then pinned into position. An Jim wing guide was used to check the depth of resection of our anterior condylar cut and it was felt that no notching would occur. The anterior condylar cut was then made followed by the posterior condylar cut. Both the posterior chamfer and anterior chamfer cuts were then made. The cutting block was then removed along with the excess bony remnants. We then turned our attention to the tibia. The anterior cruciate ligament and posterior cruciate ligament were released and a posterior cruciate ligament retractor was placed to allow the tibia to be pulled anteriorly. The tibial extra-medullary guide was then positioned. We chose to take approximately 2 mm off of the lowest side. The proximal tibia cutting guide was then placed and screwed into position. The proximal tibial resection was then made with care being taken to protect the patellar tendon. The bony resection was then removed. The remainder of the medial and lateral meniscus were then excised. Care was taken to protect the popliteus tendon. The tibia was then sized to the appropriate size. The distal femur was then elevated. The posterior capsule was stripped off the distal femur both medially and laterally. The posterior capsule along with the medial and lateral gutters were then injected with a standard mixture consisting of clonidine, epinephrine, Toradol, and opivacaine, unless any allergies were found preoperatively. The femoral component was then placed onto the distal femur in a slightly lateral position. This fit the femur well. A box cut was then made without difficulty. This was then removed. The tibial trial along with the polyethylene liner was then placed. The knee came easily into full extension and was stable to varus and valgus stressing both in full extension and flexion. Any additional releases were performed at this time. We then returned our attention to the patella. The patella was everted and towel clamps were used to hold the patella in position. It was resected to a 15 millimeter thickness. It was then sized to the appropriate size. It was prepared in the usual fashion after placing the predetermined size clamps. This was placed in a slightly superior and medial position. The clamp was then removed. The patellar trial button was placed. The knee was taken through a range of motion using the no-touch technique. The patella tracked centrally. A drop drew was then placed to check alignment. All instruments were then removed from the knee. The tibial sizer was then placed on the tibia. The tibia was prepared in the usual fashion using the reamer and broach. This was then removed. All bony surfaces were copiously irrigated with Pulsavac solution. They were then suctioned dry. Cement was prepared on the back table in the usual manner. Antibiotic impregnated cement was used if the patient was diabetic. Once it was prepared, the bone ends were again suctioned dry. The tibia was cemented into place first. This was malleted into position. Excess cement was then cleared. The femur was then placed in a similar manner. We placed the polyethylene trial into place and the knee was brought into full extension. An axial load was placed while keeping the knee in full extension. The patella button was also cemented into position and the clamp was used to hold this in place as the cement was allowed to cure. The wound was copiously irrigated with saline using a pulsavac embedded software manager. Following this, 1 gram of tranexamic acid was applied topically to the wound during the curing process. After we had adequate curing of the cement, the knee was again taken through a range of motion. The size of the polyethylene was then determined. The polyethylene trial was then removed. The tibial tray was suctioned to make sure there was no remaining soft tissue or cement. Excess cement was cleared from around the edges of the prosthesis as well. The tourniquet was then deflated. We were able to observe for any excess bleeding and none was noted. Electrocautery was used to maintain hemostasis. An additional gram of tranexamic acid was given IV. The retractors were again placed and the predetermined polyethylene was then placed. This was locked into position without difficulty. The knee was again taken through a range of motion with no change from the prior exam. The fascial layer was closed with Number One Vicryl. The subcutaneous tissues were closed with 2-0 Vicryl. The skin was closed with jj. Xeroform gauze was placed over the wound and a bulky dressing was applied. The patient was then awakened from anesthesia and transferred back to the operating room cart. They were brought to the recovery room in stable condition. All needle and sponge counts were correct. MIRA GUAJARDO /[id number]
[2017-09-26] MEDS: ceFAZolin 2 GM in Premix Bag 1 BAG IV SCH (19:42)
[2017-09-26] MEDS: Docusate Sodium 100 MG Cap PO SCH (20:24)
[2017-09-26] MEDS: Lactated Ringers 1,000 ML IV SCH (20:24)
[2017-09-26] MEDS: oxyCODONE ER 20 MG TAB.ER PO SCH (20:26)
[2017-09-26] MEDS ORDERED: Lisinopril 10 MG Tab PO SCH (21:00)
[2017-09-26] MEDS ORDERED: rOPINIRole 1 MG Tab PO SCH (21:00)
[2017-09-26] MEDS ORDERED: Rosuvastatin 10 MG Tab PO SCH (21:00)
[2017-09-26] MEDS ORDERED: Pantoprazole 40 MG Tab.CR PO SCH (21:00)
[2017-09-27] MEDS: Ketorolac 30 MG/ML SDV IVPUSH SCH (00:01)
[2017-09-27] MEDS: Acetaminophen 1,000 MG in Premix Bag 1 BAG IV SCH (00:02)
[2017-09-27] MEDS: ceFAZolin 2 GM in Premix Bag 1 BAG IV SCH (02:55)
[2017-09-27] MEDS: Acetaminophen 500 MG Tab PO SCH ×2 (06:00→11:23)
[2017-09-27] MEDS: Lactated Ringers 1,000 ML IV SCH (06:57)
[2017-09-27] MEDS ORDERED: Sodium Chloride 0.9% 10 ML Syringe FLUSH PRN (08:08)
[2017-09-27] MEDS ORDERED: Sodium Chloride 0.9% 2.5 ML Syringe FLUSH PRN (08:08)
--- NOTE | 2017-09-27 08:11 | PCM.SURGPN ---
<Ivy Alex R - Last Filed: 09/27/17 08:10> - General Info Date of Service: 09/27/17 Date of Surgery/Procedure: 09/26/17 POD#: 1 Functional Status: Reports: Pain Controlled, Tolerating Diet, Ambulating - Review of Systems General: Reports: No Symptoms Pulmonary: Reports: No Symptoms Cardiovascular: Reports: No Symptoms Gastrointestinal: Reports: No Symptoms Musculoskeletal: Reports: Leg Pain Systems Review Comment:: pt resting comfortably in bed pain controlled tolerating PO intake ambulating with wheeled walker no specific concerns today - Patient Data Vitals - Most Recent: Last Vital Signs Temp 98.6 F 09/27/17 07:39 Pulse 66 09/27/17 07:39 Resp 20 09/27/17 07:39 BP 109/40 L 09/27/17 07:39 Pulse Ox 90 L 09/27/17 07:39 Weight - Most Recent: 117.027 kg I&O - Last 24 Hours: Intake & Output 09/26/17 09/27/17 09/27/17 22:59 06:59 14:59 Intake Total 1600 2263 Output Total 210 550 Balance 1390 1713 Lab Results Last 24 Hrs: Laboratory Results - last 24 hr 09/26/17 09/27/17 Range/Units 10:47 05:13 Hgb 12.9 (12.0-16.0) g/dL Hct 40.2 (36.0-46.0) % Blood Type O POSITIVE Antibody Screen NEGATIVE Med Orders - Current: Current Medications Acetaminophen (Tylenol Extra Strength) 1,000 mg PO Q6H [facility] Last Admin: 09/27/17 06:00 Dose: 1,000 mg Al Hydroxide/Mg Hydroxide (Mag-Al Plus) 30 ml PO Q4H PRN PRN Reason: indigestion Aspirin (Aspirin) 325 mg PO BID [facility] Atenolol (Tenormin) 25 mg PO DAILY [facility] Bisacodyl (Dulcolax) 10 mg RECTAL DAILY PRN PRN Reason: Constipation Celecoxib (Celebrex) 200 mg PO BID [facility] Cholecalciferol (Vitamin D3) 2,000 units PO DAILY [facility] Diphenhydramine HCl (Benadryl) 25 - 50 mg PO Q6H PRN PRN Reason: Itching Docusate Sodium (Colace) 100 mg PO BID [facility] Last Admin: 09/26/17 20:24 Dose: 100 mg Escitalopram Oxalate (Lexapro) 20 mg PO DAILY [facility] Fentanyl (Sublimaze) 50 mcg IVPUSH Q5M PRN PRN Reason: Pain (severe 7-10) Stop: 09/27/17 14:06 Furosemide (Lasix) 20 mg PO DAILY PRN PRN Reason: Edema Hydromorphone HCl (Dilaudid) 0.5 - 1 mg IVPUSH Q3H PRN PRN Reason: Pain Ropivacaine 49.25 ml/Ketorolac Tromethamine 30 mg/Epinephrine HCl 0.5 mg/ Clonidine HCl 80 mcg/ Sodium Chloride 100 mls @ 50 mls/min INJECT ASDIRECTED [facility] Lactated Ringer's (Ringers, Lactated) 1,000 mls @ 100 mls/hr IV ASDIRECTED [facility] Last Admin: 09/27/17 06:57 Dose: 100 mls/hr Lisinopril (Prinivil) 20 mg PO BEDTIME [facility] Last Admin: 09/26/17 20:26 Dose: 20 mg Ondansetron HCl (Zofran) 4 mg IV Q6HR PRN PRN Reason: NAUSEA/VOMITING Oxycodone HCl (Oxycodone) 5 - 10 mg PO Q4H PRN PRN Reason: Pain Last Admin: 09/27/17 03:11 Dose: 5 mg Oxycodone HCl (Oxycontin) 20 mg PO Q12HR [facility] Last Admin: 09/26/17 20:26 Dose: 20 mg Pantoprazole Sodium (Protonix) 40 mg PO BEDTIME [facility] Last Admin: 09/26/17 20:25 Dose: 40 mg Calcium Carb/Mag Oxide/Cu/Zinc [Ra [id number] Table 1 each PO DAILY [facility] Ropinirole HCl (Requip) 2 mg PO BEDTIME [facility] Last Admin: 09/26/17 20:25 Dose: 2 mg Rosuvastatin Calcium (Crestor) 40 mg PO BEDTIME [facility] Last Admin: 09/26/17 20:25 Dose: 40 mg Scopolamine (Transderm-Scop) 1.5 mg TRDERM ONARRIVE [facility] Discontinued Medications Ephedrine Sulfate (Ephedrine Sulfate) Confirm Administered Dose 50 mg .ROUTE .STK-MED ONE Stop: 09/26/17 11:43 Famotidine (Pepcid) 40 mg IVPUSH ONARRIVE [facility] Stop: 09/25/17 14:01 Famotidine (Pepcid) 40 mg IVPUSH ONARRIVE [facility] Stop: 09/26/17 14:01 Fentanyl (Sublimaze) Confirm Administered Dose 200 mcg .ROUTE .STK-MED ONE Stop: 09/26/17 11:42 Hydromorphone HCl (Dilaudid) 0 mg IVPUSH ONETIME ONE Stop: 09/26/17 14:07 Last Admin: 09/26/17 20:53 Dose: Not Given Acetaminophen 1,000 mg/ Premix 100 mls @ 400 mls/hr IV ONARRIVE [facility] Stop: 09/25/17 14:01 Cefazolin Sodium/Dextrose 2 gm (/ Premix) 50 mls @ 100 mls/hr IV ONCALL [facility] Stop: 09/25/17 14:01 Ropivacaine 49.25 ml/Ketorolac Tromethamine 30 mg/Epinephrine HCl 0.5 mg/ Clonidine HCl 80 mcg/ Sodium Chloride 100 mls @ 50 mls/min INJECT ASDIRECTED [facility] Stop: 09/26/17 14:01 Lactated Ringer's (Ringers, Lactated) 1,000 mls @ 100 mls/hr IV ASDIRECTED [facility] Tranexamic Acid 4,000 mg/ (Sodium Chloride) 140 mls @ 600 mls/hr IV ASDIRECTED [facility] Stop: 09/25/17 14:01 Acetaminophen 1,000 mg/ Premix 100 mls @ 400 mls/hr IV ONARRIVE [facility] Stop: 09/26/17 14:01 Cefazolin Sodium/Dextrose 2 gm (/ Premix) 50 mls @ 100 mls/hr IV ONCALL [facility] Stop: 09/26/17 14:01 Tranexamic Acid 4,000 mg/ (Sodium Chloride) 140 mls @ 600 mls/hr IV ASDIRECTED [facility] Stop: 09/26/17 14:01 Acetaminophen 1,000 mg/ Premix 100 mls @ 400 mls/hr IV Q6H [facility] Stop: 09/27/17 00:14 Last Admin: 09/27/17 00:02 Dose: 400 mls/hr Cefazolin Sodium/Dextrose 2 gm (/ Premix) 50 mls @ 100 mls/hr IV Q8H [facility] Stop: 09/27/17 03:29 Last Admin: 09/27/17 02:55 Dose: 100 mls/hr Ketorolac Tromethamine (Toradol) 30 mg IVPUSH ONARRIVE [facility] Stop: 09/25/17 14:01 Ketorolac Tromethamine (Toradol) 30 mg IVPUSH ONARRIVE [facility] Stop: 09/26/17 14:01 Ketorolac Tromethamine (Toradol) 30 mg IVPUSH Q6H [facility] Stop: 09/27/17 04:00 Last Admin: 09/27/17 00:01 Dose: 30 mg Lidocaine (Xylocaine-Mpf 2%) Confirm Administered Dose 10 ml .ROUTE .STK-MED ONE Stop: 09/26/17 11:42 Midazolam HCl (Versed 1 Mg/Ml) Confirm Administered Dose 2 mg .ROUTE .STK-MED ONE Stop: 09/26/17 11:43 Ondansetron HCl (Zofran) Confirm Administered Dose 8 mg .ROUTE .STK-MED ONE Stop: 09/26/17 11:43 Oxycodone HCl (Oxycontin) 20 mg PO ONARRIVE [facility] Stop: 09/25/17 14:01 Oxycodone HCl (Oxycontin) 20 mg PO ONARRIVE [facility] Stop: 09/26/17 14:01 Propofol (Diprivan 20 Ml) Confirm Administered Dose 400 mg .ROUTE .STK-MED ONE Stop: 09/26/17 11:42 Propofol (Diprivan 20 Ml) Confirm Administered Dose 200 mg .ROUTE .STK-MED ONE Stop: 09/26/17 14:08 Scopolamine (Transderm-Scop) 1.5 mg TRDERM ONARRIVE [facility] - Exam Wound/Incisions: Dressing Dry and Intact General: Alert, Oriented Cardiovascular: Regular Rate, Regular Rhythm Extremities: Other (exam RLE - at/ehl/gastroc 5/5, dp 2+, sensation intact distally) Physical Findings Comment:: vss, afeb uo 800+mL hgb 12.9 - Problem List Review Problem List Initiated/Reviewed/Updated: Yes - My Orders Last 24 Hours: Active Orders 24 hr Category Date Time Status Activity as Tolerated [RC] .Routine Care 09/26/17 14:33 Active Dressing Change [Wound Care] [RC] Q12H Care 09/26/17 14:34 Active Insert Urinary Catheter [OM.PC] Routine Care 09/26/17 08:00 Ordered Neurovascular Check [RC] Q2HR Care 09/26/17 14:33 Active Notify Provider Vital Signs [RC] ASDIRECTED Care 09/26/17 14:33 Active RT Incentive Spirometry [RC] ASDIRECTED Care 09/26/17 14:33 Active Urinary Catheter Assessment [RC] Q4H Care 09/26/17 08:00 Active Urinary Catheter Removal [RC] Per Unit Routine Care 09/27/17 08:08 Ordered Vital Signs [RC] Q4H Care 09/26/17 14:33 Active PT Evaluation and Treatment [CONS] Routine Cons 09/26/17 14:33 Active Knee 1V or 2V Lt [CR] Routine Exams 09/26/17 13:55 Taken HEMOGLOBIN/HEMATOCRIT,HH [HEME] DAILY Lab 09/28/17 06:00 Ordered HEMOGLOBIN/HEMATOCRIT,HH [HEME] DAILY Lab 09/29/17 06:00 Ordered Acetaminophen [Tylenol Extra Strength] Med 09/27/17 06:00 Active 1,000 mg PO Q6H Alum Hydrox/Mag Hydrox/Simeth [Mag-Al Plus] Med 09/26/17 14:34 Active 30 ml PO Q4H PRN Aspirin Med 09/27/17 09:00 Active 325 mg PO BID Atenolol [Tenormin] Med 09/27/17 09:00 Active 25 mg PO DAILY Bisacodyl [Dulcolax] Med 09/26/17 14:34 Active 10 mg RECTAL DAILY PRN Celecoxib [CeleBREX] Med 09/27/17 09:00 Active 200 mg PO BID Cholecalciferol (Vitamin D3) [Vitamin D3] Med 09/27/17 09:00 Active 2,000 units PO DAILY Docusate Sodium [Colace] Med 09/26/17 21:00 Active 100 mg PO BID Escitalopram [Lexapro] Med 09/27/17 09:00 Active 20 mg PO DAILY Furosemide [Lasix] Med 09/26/17 14:37 Active 20 mg PO DAILY PRN HYDROmorphone [Dilaudid] Med 09/26/17 14:34 Active 0.5 - 1 mg IVPUSH Q3H PRN Lisinopril [Prinivil] Med 09/26/17 21:00 Active 20 mg PO BEDTIME Ondansetron [Zofran] Med 09/26/17 14:34 Active 4 mg IV Q6HR PRN Pantoprazole [ProTONIX] Med 09/26/17 21:00 Active 40 mg PO BEDTIME Patient's Own Medication [Ptom] Med 09/27/17 09:00 Active 1 each PO DAILY Ropivacaine [Naropin 0.2%] 49.25 ml Med 09/26/17 08:00 Active Ketorolac [Toradol] 30 mg EPINEPHrine [Adrenalin] 0.5 mg cloNIDine [Duraclon] 80 mcg Sodium Chloride 0.9% [Normal Saline] 48.45 ml INJECT ASDIRECTED Rosuvastatin [Crestor] Med 09/26/17 21:00 Active 40 mg PO BEDTIME Sodium Chloride 0.9% [Saline Flush] Med 09/27/17 08:08 Ordered 10 ml FLUSH ASDIRECTED PRN Sodium Chloride 0.9% [Saline Flush] Med 09/27/17 08:08 Ordered 2.5 ml FLUSH ASDIRECTED PRN diphenhydrAMINE [Benadryl] Med 09/26/17 14:34 Active 25 - 50 mg PO Q6H PRN fentaNYL [Sublimaze] Med 09/26/17 14:06 Active 50 mcg IVPUSH Q5M PRN oxyCODONE Med 09/26/17 14:34 Active 5 - 10 mg PO Q4H PRN oxyCODONE ER [OxyCONTIN] Med 09/26/17 21:00 Active 20 mg PO Q12HR rOPINIRole [Requip] Med 09/26/17 21:00 Active 2 mg PO BEDTIME Convert IV to Saline Lock [OM.PC] Routine Oth 09/27/17 08:08 Ordered Ice Therapy [OM.PC] Routine Oth 09/26/17 14:33 Ordered Medication Orders Acetaminophen (Tylenol Extra Strength) 1,000 mg PO Q6H [facility] Last Admin: 09/27/17 06:00 Dose: 1,000 mg Al Hydroxide/Mg Hydroxide (Mag-Al Plus) 30 ml PO Q4H PRN PRN Reason: indigestion Aspirin (Aspirin) 325 mg PO BID [facility] Atenolol (Tenormin) 25 mg PO DAILY [facility] Bisacodyl (Dulcolax) 10 mg RECTAL DAILY PRN PRN Reason: Constipation Celecoxib (Celebrex) 200 mg PO BID [facility] Cholecalciferol (Vitamin D3) 2,000 units PO DAILY [facility] Diphenhydramine HCl (Benadryl) 25 - 50 mg PO Q6H PRN PRN Reason: Itching Docusate Sodium (Colace) 100 mg PO BID [facility] Last Admin: 09/26/17 20:24 Dose: 100 mg Escitalopram Oxalate (Lexapro) 20 mg PO DAILY [facility] Fentanyl (Sublimaze) 50 mcg IVPUSH Q5M PRN PRN Reason: Pain (severe 7-10) Stop: 09/27/17 14:06 Furosemide (Lasix) 20 mg PO DAILY PRN PRN Reason: Edema Hydromorphone HCl (Dilaudid) 0.5 - 1 mg IVPUSH Q3H PRN PRN Reason: Pain Ropivacaine 49.25 ml/Ketorolac Tromethamine 30 mg/Epinephrine HCl 0.5 mg/ Clonidine HCl 80 mcg/ Sodium Chloride 100 mls @ 50 mls/min INJECT ASDIRECTED [facility] Lactated Ringer's (Ringers, Lactated) 1,000 mls @ 100 mls/hr IV ASDIRECTED [facility] Last Admin: 09/27/17 06:57 Dose: 100 mls/hr Infusion: 09/27/17 06:24 Dose: 100 mls/hr Admin: 09/26/17 20:24 Dose: 100 mls/hr Lisinopril (Prinivil) 20 mg PO BEDTIME [facility] Last Admin: 09/26/17 20:26 Dose: 20 mg Ondansetron HCl (Zofran) 4 mg IV Q6HR PRN PRN Reason: NAUSEA/VOMITING Oxycodone HCl (Oxycodone) 5 - 10 mg PO Q4H PRN PRN Reason: Pain Last Admin: 09/27/17 03:11 Dose: 5 mg Oxycodone HCl (Oxycontin) 20 mg PO Q12HR [facility] Last Admin: 09/26/17 20:26 Dose: 20 mg Pantoprazole Sodium (Protonix) 40 mg PO BEDTIME [facility] Last Admin: 09/26/17 20:25 Dose: 40 mg Calcium Carb/Mag Oxide/Cu/Zinc [Ra Rqyyfup-Ezp-Vfct Table 1 each PO DAILY [facility] Ropinirole HCl (Requip) 2 mg PO BEDTIME [facility] Last Admin: 09/26/17 20:25 Dose: 2 mg Rosuvastatin Calcium (Crestor) 40 mg PO BEDTIME [facility] Last Admin: 09/26/17 20:25 Dose: 40 mg Scopolamine (Transderm-Scop) 1.5 mg TRDERM ONARRIVE [facility] - Assessment Assessment (Free Text/Narrative):: POD#1 L TKA - Plan Plan (Free Text/Narrative):: DC IV fluids DC chew continue pain management PT today ASA 325mg PO BID for DVT prophylaxis if pt does well with PT and pain is well controlled, will consider d/ch to home dressing change prior to d/ch to home <Renee Kelley R - Last Filed: 09/27/17 12:26> - Patient Data Vitals - Most Recent: Last Vital Signs Temp 98 F 09/27/17 11:00 Pulse 66 09/27/17 11:00 Resp 18 09/27/17 11:00 BP 104/43 L 09/27/17 11:00 Pulse Ox 94 L 09/27/17 11:00 I&O - Last 24 Hours: Intake & Output 09/26/17 09/27/17 09/27/17 22:59 06:59 14:59 Intake Total 1600 2263 Output Total 210 550 Balance 1390 1713 Lab Results Last 24 Hrs: Laboratory Results - last 24 hr 09/26/17 09/27/17 Range/Units 10:47 05:13 Hgb 12.9 (12.0-16.0) g/dL Hct 40.2 (36.0-46.0) % Blood Type O POSITIVE Antibody Screen NEGATIVE Med Orders - Current: Current Medications Acetaminophen (Tylenol Extra Strength) 1,000 mg PO Q6H [facility] Last Admin: 09/27/17 11:23 Dose: 1,000 mg Al Hydroxide/Mg Hydroxide (Mag-Al Plus) 30 ml PO Q4H PRN PRN Reason: indigestion Aspirin (Aspirin) 325 mg PO BID [facility] Last Admin: 09/27/17 09:49 Dose: 325 mg Atenolol (Tenormin) 25 mg PO DAILY [facility] Last Admin: 09/27/17 09:49 Dose: 25 mg Bisacodyl (Dulcolax) 10 mg RECTAL DAILY PRN PRN Reason: Constipation Celecoxib (Celebrex) 200 mg PO BID [facility] Last Admin: 09/27/17 09:49 Dose: 200 mg Cholecalciferol (Vitamin D3) 2,000 units PO DAILY [facility] Last Admin: 09/27/17 09:49 Dose: 2,000 units Diphenhydramine HCl (Benadryl) 25 - 50 mg PO Q6H PRN PRN Reason: Itching Docusate Sodium (Colace) 100 mg PO BID [facility] Last Admin: 09/27/17 09:49 Dose: 100 mg Escitalopram Oxalate (Lexapro) 20 mg PO DAILY [facility] Last Admin: 09/27/17 09:49 Dose: 20 mg Fentanyl (Sublimaze) 50 mcg IVPUSH Q5M PRN PRN Reason: Pain (severe 7-10) Stop: 09/27/17 14:06 Furosemide (Lasix) 20 mg PO DAILY PRN PRN Reason: Edema Hydromorphone HCl (Dilaudid) 0.5 - 1 mg IVPUSH Q3H PRN PRN Reason: Pain Ropivacaine 49.25 ml/Ketorolac Tromethamine 30 mg/Epinephrine HCl 0.5 mg/ Clonidine HCl 80 mcg/ Sodium Chloride 100 mls @ 50 mls/min INJECT ASDIRECTED [facility] Lactated Ringer's (Ringers, Lactated) 1,000 mls @ 100 mls/hr IV ASDIRECTED [facility] Last Admin: 09/27/17 06:57 Dose: 100 mls/hr Lisinopril (Prinivil) 20 mg PO BEDTIME [facility] Last Admin: 09/26/17 20:26 Dose: 20 mg Ondansetron HCl (Zofran) 4 mg IV Q6HR PRN PRN Reason: NAUSEA/VOMITING Oxycodone HCl (Oxycodone) 5 - 10 mg PO Q4H PRN PRN Reason: Pain Last Admin: 09/27/17 03:11 Dose: 5 mg Oxycodone HCl (Oxycontin) 20 mg PO Q12HR [facility] Last Admin: 09/27/17 09:49 Dose: 20 mg Pantoprazole Sodium (Protonix) 40 mg PO BEDTIME [facility] Last Admin: 09/26/17 20:25 Dose: 40 mg Calcium Carb/Mag Oxide/Cu/Zinc [Ra Fksflvg-Xrn-Yisc Table 1 each PO DAILY [facility] Last Admin: 09/27/17 10:05 Dose: Not Given Ropinirole HCl (Requip) 2 mg PO BEDTIME [facility] Last Admin: 09/26/17 20:25 Dose: 2 mg Rosuvastatin Calcium (Crestor) 40 mg PO BEDTIME [facility] Last Admin: 09/26/17 20:25 Dose: 40 mg Scopolamine (Transderm-Scop) 1.5 mg TRDERM ONARRIVE [facility] Sodium Chloride (Saline Flush) 10 ml FLUSH ASDIRECTED PRN PRN Reason: Keep Vein Open Sodium Chloride (Saline Flush) 2.5 ml FLUSH ASDIRECTED PRN PRN Reason: Keep Vein Open Discontinued Medications Ephedrine Sulfate (Ephedrine Sulfate) Confirm Administered Dose 50 mg .ROUTE .STK-MED ONE Stop: 09/26/17 11:43 Famotidine (Pepcid) 40 mg IVPUSH ONARRIVE [facility] Stop: 09/25/17 14:01 Famotidine (Pepcid) 40 mg IVPUSH ONARRIVE [facility] Stop: 09/26/17 14:01 Fentanyl (Sublimaze) Confirm Administered Dose 200 mcg .ROUTE .STK-MED ONE Stop: 09/26/17 11:42 Hydromorphone HCl (Dilaudid) 0 mg IVPUSH ONETIME ONE Stop: 09/26/17 14:07 Last Admin: 09/26/17 20:53 Dose: Not Given Acetaminophen 1,000 mg/ Premix 100 mls @ 400 mls/hr IV ONARRIVE [facility] Stop: 09/25/17 14:01 Cefazolin Sodium/Dextrose 2 gm (/ Premix) 50 mls @ 100 mls/hr IV ONCALL [facility] Stop: 09/25/17 14:01 Ropivacaine 49.25 ml/Ketorolac Tromethamine 30 mg/Epinephrine HCl 0.5 mg/ Clonidine HCl 80 mcg/ Sodium Chloride 100 mls @ 50 mls/min INJECT ASDIRECTED [facility] Stop: 09/26/17 14:01 Lactated Ringer's (Ringers, Lactated) 1,000 mls @ 100 mls/hr IV ASDIRECTED [facility] Tranexamic Acid 4,000 mg/ (Sodium Chloride) 140 mls @ 600 mls/hr IV ASDIRECTED [facility] Stop: 09/25/17 14:01 Acetaminophen 1,000 mg/ Premix 100 mls @ 400 mls/hr IV ONARRIVE [facility] Stop: 09/26/17 14:01 Cefazolin Sodium/Dextrose 2 gm (/ Premix) 50 mls @ 100 mls/hr IV ONCALL [facility] Stop: 09/26/17 14:01 Tranexamic Acid 4,000 mg/ (Sodium Chloride) 140 mls @ 600 mls/hr IV ASDIRECTED [facility] Stop: 09/26/17 14:01 Acetaminophen 1,000 mg/ Premix 100 mls @ 400 mls/hr IV Q6H [facility] Stop: 09/27/17 00:14 Last Admin: 09/27/17 00:02 Dose: 400 mls/hr Cefazolin Sodium/Dextrose 2 gm (/ Premix) 50 mls @ 100 mls/hr IV Q8H [facility] Stop: 09/27/17 03:29 Last Admin: 09/27/17 02:55 Dose: 100 mls/hr Ketorolac Tromethamine (Toradol) 30 mg IVPUSH ONARRIVE [facility] Stop: 09/25/17 14:01 Ketorolac Tromethamine (Toradol) 30 mg IVPUSH ONARRIVE [facility] Stop: 09/26/17 14:01 Ketorolac Tromethamine (Toradol) 30 mg IVPUSH Q6H [facility] Stop: 09/27/17 04:00 Last Admin: 09/27/17 00:01 Dose: 30 mg Lidocaine (Xylocaine-Mpf 2%) Confirm Administered Dose 10 ml .ROUTE .STK-MED ONE Stop: 09/26/17 11:42 Midazolam HCl (Versed 1 Mg/Ml) Confirm Administered Dose 2 mg .ROUTE .STK-MED ONE Stop: 09/26/17 11:43 Ondansetron HCl (Zofran) Confirm Administered Dose 8 mg .ROUTE .STK-MED ONE Stop: 09/26/17 11:43 Oxycodone HCl (Oxycontin) 20 mg PO ONARRIVE [facility] Stop: 09/25/17 14:01 Oxycodone HCl (Oxycontin) 20 mg PO ONARRIVE [facility] Stop: 09/26/17 14:01 Propofol (Diprivan 20 Ml) Confirm Administered Dose 400 mg .ROUTE .STK-MED ONE Stop: 09/26/17 11:42 Propofol (Diprivan 20 Ml) Confirm Administered Dose 200 mg .ROUTE .STK-MED ONE Stop: 09/26/17 14:08 Scopolamine (Transderm-Scop) 1.5 mg TRDERM ONARRIVE [facility] - My Orders Last 24 Hours: Active Orders 24 hr Category Date Time Status Activity as Tolerated [RC] .Routine Care 09/26/17 14:33 Active Dressing Change [Wound Care] [RC] Q12H Care 09/26/17 14:34 Active Neurovascular Check [RC] Q2HR Care 09/26/17 14:33 Active Notify Provider Vital Signs [RC] ASDIRECTED Care 09/26/17 14:33 Active Oxygen Therapy [RC] ASDIRECTED Care 09/27/17 09:12 Active RT Incentive Spirometry [RC] ASDIRECTED Care 09/26/17 14:33 Active Ready for Discharge [RC] PER UNIT ROUTINE Care 09/27/17 11:07 Active Urinary Catheter Removal [RC] Per Unit Routine Care 09/27/17 08:08 Active Vital Signs [RC] Q4H Care 09/26/17 14:33 Active PT Evaluation and Treatment [CONS] Routine Cons 09/26/17 14:33 Active HEMOGLOBIN/HEMATOCRIT,HH [HEME] DAILY Lab 09/28/17 06:00 Ordered HEMOGLOBIN/HEMATOCRIT,HH [HEME] DAILY Lab 09/29/17 06:00 Ordered Acetaminophen [Tylenol Extra Strength] Med 09/27/17 06:00 Active 1,000 mg PO Q6H Alum Hydrox/Mag Hydrox/Simeth [Mag-Al Plus] Med 09/26/17 14:34 Active 30 ml PO Q4H PRN Aspirin Med 09/27/17 09:00 Active 325 mg PO BID Atenolol [Tenormin] Med 09/27/17 09:00 Active 25 mg PO DAILY Bisacodyl [Dulcolax] Med 09/26/17 14:34 Active 10 mg RECTAL DAILY PRN Celecoxib [CeleBREX] Med 09/27/17 09:00 Active 200 mg PO BID Cholecalciferol (Vitamin D3) [Vitamin D3] Med 09/27/17 09:00 Active 2,000 units PO DAILY Docusate Sodium [Colace] Med 09/26/17 21:00 Active 100 mg PO BID Escitalopram [Lexapro] Med 09/27/17 09:00 Active 20 mg PO DAILY Furosemide [Lasix] Med 09/26/17 14:37 Active 20 mg PO DAILY PRN HYDROmorphone [Dilaudid] Med 09/26/17 14:34 Active 0.5 - 1 mg IVPUSH Q3H PRN Lisinopril [Prinivil] Med 09/26/17 21:00 Active 20 mg PO BEDTIME Ondansetron [Zofran] Med 09/26/17 14:34 Active 4 mg IV Q6HR PRN Pantoprazole [ProTONIX] Med 09/26/17 21:00 Active 40 mg PO BEDTIME Patient's Own Medication [Ptom] Med 09/27/17 09:00 Active 1 each PO DAILY Rosuvastatin [Crestor] Med 09/26/17 21:00 Active 40 mg PO BEDTIME Sodium Chloride 0.9% [Saline Flush] Med 09/27/17 08:08 Active 10 ml FLUSH ASDIRECTED PRN Sodium Chloride 0.9% [Saline Flush] Med 09/27/17 08:08 Active 2.5 ml FLUSH ASDIRECTED PRN diphenhydrAMINE [Benadryl] Med 09/26/17 14:34 Active 25 - 50 mg PO Q6H PRN fentaNYL [Sublimaze] Med 09/26/17 14:06 Active 50 mcg IVPUSH Q5M PRN oxyCODONE Med 09/26/17 14:34 Active 5 - 10 mg PO Q4H PRN oxyCODONE ER [OxyCONTIN] Med 09/26/17 21:00 Active 20 mg PO Q12HR rOPINIRole [Requip] Med 09/26/17 21:00 Active 2 mg PO BEDTIME Convert IV to Saline Lock [OM.PC] Routine Oth 09/27/17 08:08 Ordered Ice Therapy [OM.PC] Routine Oth 09/26/17 14:33 Ordered Medication Orders Acetaminophen (Tylenol Extra Strength) 1,000 mg PO Q6H [facility] Last Admin: 09/27/17 11:23 Dose: 1,000 mg Admin: 09/27/17 06:00 Dose: 1,000 mg Al Hydroxide/Mg Hydroxide (Mag-Al Plus) 30 ml PO Q4H PRN PRN Reason: indigestion Aspirin (Aspirin) 325 mg PO BID [facility] Last Admin: 09/27/17 09:49 Dose: 325 mg Atenolol (Tenormin) 25 mg PO DAILY [facility] Last Admin: 09/27/17 09:49 Dose: 25 mg Bisacodyl (Dulcolax) 10 mg RECTAL DAILY PRN PRN Reason: Constipation Celecoxib (Celebrex) 200 mg PO BID [facility] Last Admin: 09/27/17 09:49 Dose: 200 mg Cholecalciferol (Vitamin D3) 2,000 units PO DAILY [facility] Last Admin: 09/27/17 09:49 Dose: 2,000 units Diphenhydramine HCl (Benadryl) 25 - 50 mg PO Q6H PRN PRN Reason: Itching Docusate Sodium (Colace) 100 mg PO BID [facility] Last Admin: 09/27/17 09:49 Dose: 100 mg Admin: 09/26/17 20:24 Dose: 100 mg Escitalopram Oxalate (Lexapro) 20 mg PO DAILY [facility] Last Admin: 09/27/17 09:49 Dose: 20 mg Fentanyl (Sublimaze) 50 mcg IVPUSH Q5M PRN PRN Reason: Pain (severe 7-10) Stop: 09/27/17 14:06 Furosemide (Lasix) 20 mg PO DAILY PRN PRN Reason: Edema Hydromorphone HCl (Dilaudid) 0.5 - 1 mg IVPUSH Q3H PRN PRN Reason: Pain Ropivacaine 49.25 ml/Ketorolac Tromethamine 30 mg/Epinephrine HCl 0.5 mg/ Clonidine HCl 80 mcg/ Sodium Chloride 100 mls @ 50 mls/min INJECT ASDIRECTED [facility] Lactated Ringer's (Ringers, Lactated) 1,000 mls @ 100 mls/hr IV ASDIRECTED [facility] Last Admin: 09/27/17 06:57 Dose: 100 mls/hr Infusion: 09/27/17 06:24 Dose: 100 mls/hr Admin: 09/26/17 20:24 Dose: 100 mls/hr Lisinopril (Prinivil) 20 mg PO BEDTIME [facility] Last Admin: 09/26/17 20:26 Dose: 20 mg Ondansetron HCl (Zofran) 4 mg IV Q6HR PRN PRN Reason: NAUSEA/VOMITING Oxycodone HCl (Oxycodone) 5 - 10 mg PO Q4H PRN PRN Reason: Pain Last Admin: 09/27/17 03:11 Dose: 5 mg Oxycodone HCl (Oxycontin) 20 mg PO Q12HR [facility] Last Admin: 09/27/17 09:49 Dose: 20 mg Admin: 09/26/17 20:26 Dose: 20 mg Pantoprazole Sodium (Protonix) 40 mg PO BEDTIME [facility] Last Admin: 09/26/17 20:25 Dose: 40 mg Calcium Carb/Mag Oxide/Cu/Zinc [Ra Giyicka-Tlc-Ncdm Table 1 each PO DAILY [facility] Last Admin: 09/27/17 10:05 Dose: Ropinirole HCl (Requip) 2 mg PO BEDTIME [facility] Last Admin: 09/26/17 20:25 Dose: 2 mg Rosuvastatin Calcium (Crestor) 40 mg PO BEDTIME [facility] Last Admin: 09/26/17 20:25 Dose: 40 mg Scopolamine (Transderm-Scop) 1.5 mg TRDERM ONARRIVE [facility] Sodium Chloride (Saline Flush) 10 ml FLUSH ASDIRECTED PRN PRN Reason: Keep Vein Open Sodium Chloride (Saline Flush) 2.5 ml FLUSH ASDIRECTED PRN PRN Reason: Keep Vein Open - Plan Plan (Free Text/Narrative):: 1120 Patient seen and examined. Agree with the above note. Patient has been moving around the room independently. She will have physical therapy this morning. Her pain has been well-controlled. She has no complaints today. Hemoglobin remained stable. Exam of the knee shows dressing to be dry and intact. AT/EHL/gastroc 5/5. Sensation grossly intact. DP/PT pulses 2+. 1. Continue physical therapy this afternoon. 2. Continue current pain management 3. Plan discharge home later today if she passes physical therapy 4. Aspirin for DVT prophylaxis rrk
--- NOTE | 2017-09-27 08:30 | PCM48HPAN ---
Post Anesthesia Note - EVALUATION WITHIN 48HRS OF ANESTHETIC Vital Signs in Normal Range: Yes Patient Participated in Evaluation: Yes Respiratory Function Stable: Yes (Remains on NC) Airway Patent: Yes Cardiovascular Function Stable: Yes Hydration Status Stable: Yes Pain Control Satisfactory: Yes Nausea and Vomiting Control Satisfactory: Yes Mental Status Recovered: Yes - COMMENTS/OBSERVATIONS Free Text/Narrative:: Patient states she has been up walking previously. At the moment she seems very tired and falls asleep as soon as she is done answering a question. I talked with her nurse and Stephanie the manager math. They both said she has not had any problems during the night and that she is just tired because she did not get any sleep yesterday.
[2017-09-27] MEDS ORDERED: Celecoxib 100 MG Cap PO SCH (09:00)
[2017-09-27] MEDS ORDERED: [UNRECOGNIZED DRUG - OTHER] PO SCH (09:00)
[2017-09-27] MEDS ORDERED: Cholecalciferol (Vitamin D3) 1,000 Unit Tab PO SCH (09:00)
[2017-09-27] MEDS ORDERED: Aspirin 325 MG Tab PO SCH (09:00)
[2017-09-27] MEDS ORDERED: Atenolol 25 MG Tab PO SCH (09:00)
[2017-09-27] MEDS ORDERED: Escitalopram 10 MG Tab PO SCH (09:00)
[2017-09-27] MEDS ORDERED: Famotidine 20 MG Tab PO SCH (09:00)
[2017-09-27] MEDS ORDERED: CALCIUM CARB PO SCH (09:00)
[2017-09-27] MEDS ORDERED: MAG OXIDE PO SCH (09:00)
[2017-09-27] MEDS ORDERED: ZINC PO SCH (09:00)
[2017-09-27] MEDS: oxyCODONE ER 20 MG TAB.ER PO SCH (09:49)
[2017-09-27] MEDS: Docusate Sodium 100 MG Cap PO SCH (09:49)
--- NOTE | 2017-09-27 10:56 | CR ---
EXAMINATION: Left knee HISTORY: Arthroplasty COMPARISON: 09/12/2017 TECHNIQUE: 3 views FINDINGS/IMPRESSION: Left total knee hardware demonstrated in good position and alignment. Postoperat christopher soft tissue changes are noted.
--- NOTE | 2017-09-27 11:11 | PCM.SN ---
- Free Text/Narrative Note: d/ch summary #[id number] dressing changed by nursing staff to [facility]
[2017-09-27 11:19] VITALS: BP 104/43
--- NOTE | 2017-09-28 07:45 | DISCH ---
DATE OF DISCHARGE: 09/27/2017 PRIMARY CARE PHYSICIAN: Cruz Urias MD ADMITTING DIAGNOSIS: Degenerative joint disease, left knee, tricompartmental. OTHER MEDICAL DIAGNOSES: 1. Dyslipidemia. 2. Obesity. 3. Depression. 4. Cardiac palpitations. 5. Sleep apnea, on CPAP. DISCHARGE DIAGNOSES: 1. Degenerative joint disease, left knee, tricompartmental. 2. Dyslipidemia. 3. Obesity. 4. Depression. 5. Cardiac palpitations. 6. Sleep apnea, on CPAP. BRIEF HISTORY: Elena is a 61-year-old female who has had progressive complaints of left knee pain. She has tried and failed conservative treatment. She has previously undergone a right total knee arthroplasty and is doing well with that. At that time, surgical treatment was recommended for her left knee. On September 26, 2017, the patient underwent a left total knee arthroplasty done by Dr. Renee Kelley. This was done under spinal anesthesia with sedation. Estimated blood loss was 50 milliliters. Tourniquet time was 40 minutes. There were no known complications. Upon completion of the procedure, the patient was transferred to the PACU and subsequently to [facility] for postoperative care. HOSPITAL COURSE: Postoperatively, the patient did well. She received two doses of Ancef postoperatively for a total of 24 hours of antibiotic coverage. Her pain is well controlled with oral pain medications. Physical therapy followed her through her hospital stay. She has been ambulating well with a wheeled walker. Her vital signs have been stable. She has been afebrile. Her hemoglobin on the morning of September 27 was 12.9. Her pain is well controlled with oral pain medications. She feels comfortable with discharge to home today. DISCHARGE MEDICATIONS: 1. OxyContin 20 mg. 2. Oxycodone 5 mg. 3. Tylenol Extra Strength 500 mg. 4. Celebrex 200 mg. 5. Colace 100 mg. 6. Aspirin 325 mg. DISCHARGE INSTRUCTIONS: 1. Follow up in clinic in 10 to 14 days from the date of procedure. This appointment has been made for the patient. 2. Outpatient physical therapy 2 to 3 times per week for 4 to 6 weeks. 3. No driving while taking narcotic pain medications. 4. She is to change her dressing on October 01, 2017. She is to place a new dressing and leave that in place until followup. 5. ZEINAB hose, on in the morning, off in the evening. 6. Polar Care to the left knee as needed. For complete medication reconciliation and discharge instructions, please refer back to the patient's EHR. Should she have questions or concerns prior to followup, she has been advised to return to clinic or call. SENAIT GUAJARDO /[id number]
== END 2017-09-27 16:45 | disposition home or self-care (01) | DRG 302 ==
LOC: MW.ICU 13:01
PROVIDERS: ADMIT Orthopaedic Surgery; ATTEND Orthopaedic Surgery
PROC: 0SRD0J9 Replacement of Left Knee Joint with Synthetic Substitute, Cemented, Open Approach (ICD-10-PCS; principal; 2017-09-26)
DX: M17.12 Unilateral primary osteoarthritis, left knee (principal); M94.262 Chondromalacia, left knee; M25.762 Osteophyte, left knee; E78.5 Hyperlipidemia, unspecified; E66.9 Obesity, unspecified; Z68.37 Body mass index [BMI] 37.0-37.9, adult; F32.9 Major depressive disorder, single episode, unspecified; R00.2 Palpitations; G47.30 Sleep apnea, unspecified; Z79.899 Other long term (current) drug therapy; Z88.8 Allergy status to other drugs, medicaments and biological substances
CPT/HCPCS: 01402; 36415; 73560-26-LT; 73560-LT; 85014; 85018; 86850; 86900; 86901; 88305; 88311; 97110-GP; 97161-GP; A9270-GY; C1713; C1776; J0171; J0690; J0735; J1885; J2250; J2405; J2704; J2795; J3010; J7030; J7050; J7120